=== PATIENT | male | born 1955 | race Hispanic/Latino ===

== ENCOUNTER 2018-03-02 17:17 | Emergency (ER) | payer OTHER ==
[2018-03-02] MEDS ORDERED: Ketorolac 60 MG/2 ML SDV IM ONE (18:10)
--- NOTE | 2018-03-02 18:15 | EDM.PDOC ---
ED HPI GENERAL MEDICAL PROBLEM - General Chief Complaint: Back Pain or Injury Stated Complaint: PT HAS DIFFICULTY WALKING Time Seen by Provider: 03/02/18 18:10 Source of Information: Reports: Patient History Limitations: Reports: No Limitations - History of Present Illness INITIAL COMMENTS - FREE TEXT/NARRATIVE: HISTORY AND PHYSICAL: []62-year-old male presenting with concerns over left back pain History of Present Illness: [] Patient was twisting in the truck reaching for his phone and felt back pain today Yesterday patient was trying to lift a pneumatic trailer and felt his back hurt Review of Systems: As per history of present illness and below otherwise all systems reviewed and negative. Past medical history: As per history of present illness and as reviewed below otherwise noncontributory. Surgical history: As per history of present illness and as reviewed below otherwise noncontributory. Social history: No reported history of drug or alcohol abuse. Family history: As per history of present illness and as reviewed below otherwise noncontributory. Physical exam: Alert and oriented male answering questions appropriately in full sentences without any shortness of breath. Skin is warm and dry and intact HEENT: Atraumatic, normocehpalic, pupils reactive, negative for conjunctival pallor or scleral icterus, mucous membranes moist, throat clear, neck supple, nontender, trachea midline. Lungs: Clear to auscultation, breath sounds equal bilaterally, chest non tender. Left mid back there is some mild edema tender with palpation vertebrae is nontender. Twisting Motion does increase his pain. Heart: S1S2, regular, negative for clicks, rubs, or JVD. Abdomen: Soft, nondistended, nontender. Negative for masses or hepatossplenmegaly. Negative for costovertebral tenderness. Pelvis: Stable nontender. Genitourinary: Deferred. Rectal: Deferred Extremities: Atraumatic, negative for cords or calf pain. Neurovascular unremarkable. Neuro: Awake, alert, oriented. Cranial nerves II through XII unremarkable. Cerebellum unremarkable. Motor and sensory unremarkable throughout. Exam nonfocal. Diagnostics: [] Therapeutics: []Total 60 IM Impression: []Sprain to left side of back Plan: [] Discharge home Ibuprofen 3 tablets 3 times a day Ice to this area for the next 24 hours then may use heat whichever feels better Return to the emergency room as directed discussed Definitive disposition and diagnosis as appropriate pending reevaluation and review of above. Onset: Sudden Duration: Day(s): (1) Lower Back Pain Score (Numeric/FACES): 10 - Related Data Allergies Allergy/AdvReac Type Severity Reaction Status Date / Time No Known Allergies Allergy Verified 03/02/18 17:42 Home Meds: Home Meds Aspirin [Adult Aspirin] 81 mg PO BID 03/02/18 [History] Clopidogrel [Plavix] 75 mg PO DAILY 03/02/18 [History] Lisinopril [Prinivil] 5 mg PO BEDTIME 03/02/18 [History] Metoprolol Succinate [Toprol XL 50mg] 50 mg PO BEDTIME 03/02/18 [History] Nitroglycerin [Nitrostat] 0.4 mg SL ASDIRECTED 03/02/18 [History] atorvaSTATin [Lipitor] 20 mg PO DAILY 03/02/18 [History] Past Medical History Cardiovascular History: Reports: Hypertension, [place], Stents Social & Family History - Family History Family Medical History: Noncontributory - Tobacco Use Smoking Status *Q: Never Smoker - Caffeine Use Caffeine Use: Reports: Coffee - Recreational Drug Use Recreational Drug Use: No ED ROS GENERAL - Review of Systems Review Of Systems: ROS reveals no pertinent complaints other than HPI. ED EXAM,LOWER BACK PAIN/INJURY - Physical Exam Exam: See Below (See dictation) Course - Vital Signs Last Recorded V/S: Last Vital Signs Temp 36.4 C 03/02/18 17:38 Pulse 60 03/02/18 17:38 Resp 16 03/02/18 17:38 BP 116/67 03/02/18 17:38 Pulse Ox 95 03/02/18 17:38 - Orders/Labs/Meds Orders: Active Orders 24 hr Category Date Time Status Ketorolac [Toradol] Med 03/02/18 18:10 Once 60 mg IM ONETIME ONE Departure - Departure Time of Disposition: 18:14 Disposition: Home, Self-Care 01 Condition: Good Clinical Impression: Strain of mid-back Qualifiers: Encounter type: initial encounter Qualified Code(s): S29.012A - Strain of muscle and tendon of back wall of thorax, initial encounter - Discharge Information *PRESCRIPTION DRUG MONITORING PROGRAM REVIEWED*: Not Applicable *COPY OF PRESCRIPTION DRUG MONITORING REPORT IN PATIENT MAMI: Not Applicable Instructions: Muscle Strain, [id number], Back Pain, Adult, [id number] Referrals: PCP,None [Primary Care Provider] - Additional Instructions: The following information is given to patients seen in the emergency department who are being discharged to home. This information is to outline your options for follow-up care. We provide all patients seen in our emergency department with a follow-up referral. The need for follow-up, as well as the timing and circumstances, are variable depending upon the specifics of your emergency department visit. If you don't have a primary care physician on staff, we will provide you with a referral. We always advise you to contact your personal physician following an emergency department visit to inform them of the circumstance of the visit and for follow-up with them and/or the need for any referrals to a consulting specialist. The emergency department will also refer you to a specialist when appropriate. This referral assures that you have the opportunity for followup care with a specialist. All of these measure are taken in an effort to provide you with optimal care, which includes your followup. Under all circumstances we always encourage you to contact your private physician who remains a resource for coordinating your care. When calling for followup care, please make the office aware that this follow-up is from your recent emergency room visit. If for any reason you are refused follow-up, please contact the [facility] emergency department at and asked to speak to the emergency department charge nurse. Discharge home Ibuprofen 3 tablets 3 times a day Ice to this area for the next 24 hours then may use heat whichever feels better Return to the emergency room as directed discussed - My Orders Last 24 Hours: My Active Orders 03/02/18 18:10 Ketorolac [Toradol] 60 mg IM ONETIME ONE - Assessment/Plan Last 24 Hours: My Active Orders 03/02/18 18:10 Ketorolac [Toradol] 60 mg IM ONETIME ONE
== END 2018-03-02 19:12 | disposition home or self-care (01) ==
LOC: MW.ED 17:17
DX: S29.012A Strain of muscle and tendon of back wall of thorax, initial encounter (principal); I10 Essential (primary) hypertension; I25.2 Old myocardial infarction; Z79.899 Other long term (current) drug therapy; X50.9XXA Other and unspecified overexertion or strenuous movements or postures, initial encounter
CPT/HCPCS: 96372; 99283; J1885; 99282